=== PATIENT | female | born 1950 | race Asian ===

== ENCOUNTER 2025-01-03 18:13 | Emergency (ER) | payer MEDICARE ==
[~2025-01-03] VITALS: Ht 160 cm; Wt 68.0 kg
[2025-01-03 18:22] VITALS: BP 185/108; PULSE 89; RESP 18; TEMP 97.9; O2SAT 96
[2025-01-03 18:51] LABS: GLUCOMETER DEV NAME(LOC) ERT.6; GLUCOSE,POINT OF CARE 218 MG/DL (70-110)
[2025-01-03 19:48] LABS: BASOPHILS % (AUTO) 0.3 % (0.0-2.0); EOSINOPHILS % (AUTO) 2.1 % (1.0-6.0); HEMATOCRIT 44.6 % (36-46); HEMOGLOBIN 14.6 g/dL (12.0-16.0); LYMPHOCYTES # (AUTO) 1.7 K/uL (1.0-4.8); LYMPHOCYTES % (AUTO) 16.7 % (22.0-44.0); MEAN CORPUSCULAR HEMOGLOBIN 28.7 pg (26.0-34.0); MEAN CORPUSCULAR HGB CONC 32.9 G/dL (31.0-37.0); MEAN CORPUSCULAR VOLUME 87 fL (80-100); MONOCYTES # (AUTO) 0.6 K/uL (0.1-1.0); MONOCYTES % (AUTO) 5.9 % (2.0-9.0); NEUTROPHILS # (AUTO) 7.9 K/uL (1.8-7.7); PLATELET COUNT (AUTO) 210 K/uL (150-450); RED CELL DISTRIBUTION WIDTH 13.1 % (11.5-14.5); WHITE BLOOD COUNT (AUTO) 10.5 K/uL (4.5-11.0)
[2025-01-03 19:56] LABS: ANION GAP 9 mmol/L (8-16); CALCIUM, TOTAL 9.3 mg/dL (8.8-10.5); CARBON DIOXIDE 27 mmol/L (22-29); CHLORIDE 102 mmol/L (98-107); CREATININE 0.89 mg/dL (0.60-1.30); GLOMERULAR FILTR. RATE CALC > 60 mL/min (>60); GLUCOSE,RANDOM 220 mg/dL (70-110); POTASSIUM 3.5 mmol/L (3.5-5.1); SODIUM SERUM 138 mmol/L (136-145); UREA NITROGEN, BLOOD 13 mg/dL (7-18)
[2025-01-03 19:57] LABS: LIPASE 26 U/L (16-77)
[2025-01-03 20:03] LABS: ALBUMIN 3.8 g/dL (3.4-5.0); BILIRUBIN,DIRECT 0.3 mg/dL (0.00-0.20); BILIRUBIN,TOTAL 0.8 mg/dL (0.1-1.0); TOTAL PROTEIN, SERUM 8.3 g/dL (6.4-8.2)
[2025-01-03] MEDS: SODIUM CHLORIDE 0.9% 2,000 ML IV ONE (20:29)
[2025-01-03] MEDS: ONDANSETRON HCL 4 MG/2 ML VIAL IVP ONE (20:29)
[2025-01-03] MEDS: MORPHINE SULFATE 4 MG/ML SYRINGE IVP ONE (20:29)
[2025-01-03] MEDS ORDERED: DIPH-1130 PO (20:49)
[2025-01-03] MEDS ORDERED: ACET-66 PO (20:49)
[2025-01-03] MEDS ORDERED: ONDA-104 PO (20:49)
== END 2025-01-03 21:48 | disposition home or self-care (01) ==
LOC: EMS 18:20
DX: K52.9 Noninfective gastroenteritis and colitis, unspecified (principal); E11.65 Type 2 diabetes mellitus with hyperglycemia; I10 Essential (primary) hypertension
CPT/HCPCS: 99285; 96374; 76700; 96361; 96375; 80048; 80076; 82962; 83690; 85025; 36415; J2270; J2405; J7030